=== PATIENT | male | born 1955 | race Two or more races ===

== ENCOUNTER 2023-10-26 13:45 | Emergency (ER) | payer OTHER ==
[~2023-10-26] VITALS: Ht 165.1 cm; Wt 79.5 kg
[2023-10-26 13:50] VITALS: TEMP 98
[2023-10-26] MEDS: KETOROLAC TROMETHAMINE 60 MG/2 ML VIAL IM ONE (15:19)
[2023-10-26] MEDS: ONDANSETRON HCL 4 MG/2 ML VIAL IM ONE (15:21)
[2023-10-26] MEDS: HYDROmorphone HCL 2 MG/ML SYRINGE IM ONE (15:22)
[2023-10-26] MEDS ORDERED: IBUP-1554 PO (16:59)
[2023-10-26] MEDS ORDERED: PERCT PO (16:59)
[2023-10-26 17:34] VITALS: BP 120/82; PULSE 76; RESP 17
== END 2023-10-26 17:36 | disposition home or self-care (01) ==
LOC: EMS 13:49
DX: S82.402A Unspecified fracture of shaft of left fibula, initial encounter for closed fracture (principal); I10 Essential (primary) hypertension; W22.8XXA Striking against or struck by other objects, initial encounter; Y93.89 Activity, other specified; Y92.89 Other specified places as the place of occurrence of the external cause; Y99.8 Other external cause status
CPT/HCPCS: 99284; 73562; 73590; 73610; 73630; 96372; J1170; J1885; J2405